=== PATIENT | male | born 1945 | race Caucasian/White ===

== ENCOUNTER → 2022-07-05 10:18 | Outpatient (CLI) | payer MEDICARE, SELFPAY ==
--- NOTE | 2022-07-05 | DI.MRI.S_ITS ---
PROCEDURE: MR LUMBAR SPINE WO CON INDICATIONS: SCIATICA/LOW BACK PAIN TECHNIQUE: Noncontrast sagittal T1 spin echo and T2 fast echo, sagittal STIR, and T2 fast spin echo through the lumbar spine. In cases with scoliosis, additional coronal T2 fast spin echo may be performed. COMPARISON: None. FINDINGS: Image quality: Excellent. Alignment and Curvature: There is grade 1 L4 on L5 anterolisthesis. No other spondylolisthesis. Bone Marrow: There is multilevel reactive endplate changes. No compression deformities. Spinal Cord: Conus medullaris terminates at the L1 level. Visualized cord demonstrates normal signal and size. Paraspinous Soft Tissues: No paravertebral masses. T12-L1: Moderate disc desiccation and height loss. Broad-based disc bulge. No canal stenosis. Mild bilateral foraminal narrowing. L1-L2: Severe disc desiccation and height loss. Broad-based disc bulge. Mild facet ligamentum flavum hypertrophy. No canal stenosis. Mild left and moderate right foraminal narrowing. L2-L3: Severe disc desiccation and height loss. Broad-based disc bulge. Severe facet and ligamentum flavum hypertrophy. Mild canal stenosis. Moderate right and mild left foraminal stenosis. L3-L4: Severe disc desiccation and height loss. Vacuum disc phenomenon. Severe facet ligamentum flavum hypertrophy. Severe canal stenosis. Severe bilateral neural foraminal stenosis. L4-L5: Anterolisthesis. Severe disc desiccation and height loss. Severe facet ligamentum flavum hypertrophy. Severe canal stenosis. Severe bilateral neural foraminal stenosis. There is flattening of the exiting left nerve root. L5-S1: Severe disc desiccation and height loss. Mild facet sclerosis. No canal stenosis. Mild right foraminal narrowing. IMPRESSION: 1. Multilevel disc desiccation and height loss throughout the lumbar spine overall severe in degree. 2. Multilevel broad-based disc bulges and facet and ligamentum flavum hypertrophy with resultant mild canal stenosis at L2-3 and severe canal stenosis at L3-4 and L4-5. 3. Severe bilateral foraminal stenosis at L3-4 and L4-5. There is flattening of the exiting nerve root at L4-5. 4. Moderate right neural foraminal stenosis at L1-2 and L2-3. Dictated by: Myriam Yoon M.D. on 07/05/2022 at 15:45 Approved by: Myriam Yoon M.D. on 07/05/2022 at 16:06
== END ==
PROVIDERS: PCP Internal Medicine; Referring Provider Internal Medicine; Visit Provider Internal Medicine
DX: M48.061 Spinal stenosis, lumbar region without neurogenic claudication (principal); M51.16 Intervertebral disc disorders with radiculopathy, lumbar region; M54.50 Low back pain, unspecified
CPT/HCPCS: 72148

== ENCOUNTER → 2022-08-24 10:38 | Outpatient (CLI) | payer MEDICARE, SELFPAY ==
[2022-08-24 11:25] LABS: COVID19 -Nasal RAPID Negative (Negative)
== END ==
PROVIDERS: PCP Internal Medicine; Referring Provider Orthopaedic Surgery Orthopaedic Surgery of the Spine; Visit Provider Orthopaedic Surgery Orthopaedic Surgery of the Spine
DX: Z20.822 Contact with and (suspected) exposure to COVID-19 (principal)
CPT/HCPCS: 87635; C9803

== ENCOUNTER 2022-08-25 12:27 | Inpatient (IN) | payer MEDICARE, SELFPAY ==
[2022-08-23 12:49] VITALS: BMI 32.8
[2022-08-25] VITALS (10 sets, daily range): BP systolic 103–161; BP diastolic 55–90; PULSE 70–88; RESP 15–26; TEMP 36.3–36.8; O2SAT 87–98; BMI 32.8
--- NOTE | 2022-08-25 | DI.RAD.S_ITS ---
PROCEDURE: XR LUMBAR SPINE 2-3V INDICATIONS: L4-5 TLIF TECHNIQUE: Two views of the lumbar spine were acquired. COMPARISON: None. FINDINGS: Two intraoperative fluoroscopic spot images demonstrate posterior fusion hardware at L4-5 and intervertebral disc spacer. Alignment is grossly normal. IMPRESSION: Intraoperative fluoroscopy for L4-5 TLIF. Dictated by: Wendie Barone M.D. on 08/25/2022 at 20:37 Approved by: Wendie Barone M.D. on 08/25/2022 at 20:38
[2022-08-25] MEDS: LACTATED RINGERS 1,000 ML 42 ML IV ×3 (13:41→19:25)
--- NOTE | 2022-08-25 16:28 | PM.PREOP ---
Pre-operative Note COVID-19 COVID-19 status: Negative Result date/Date tested (Pos, Neg/Pending): 08/24/22 Criteria for continued procedure: Expected advancement of disease process, Possibility delay results in more complex future surgery or treatment, Increased loss of function, Continuing or worsening of significant or severe pain, Deterioration of the patient's condition or overall health and Delay expected to result in less-positive ultimate med/surg outcome Interval Note History & Physical reviewed/Exam performed by Physician: Yes Changes to H&P: No
[2022-08-25] MEDS: CEFAZOLIN 2 GM/100 ML PREMIX 100 ML IV (17:07)
--- NOTE | 2022-08-25 17:42 | SUR.OPER ---
Prone on spine table, head in foam head support, padded chest and pelvic supports, gel pad at knees, lower legs supported by pillows; nipples, genitalia and toes free of pressure, arms secured on foam padded arm boards at <90 degrees abduction. Tape over blanket at thigh secured to table. Gel pad placed between bilateral heels.
[2022-08-25] MEDS: BUPIVACAINE LIPOSOME 266 MG/20 ML VIAL INJ (17:48)
[2022-08-25] MEDS: BUPIVACAINE 0.25% (PF) 30 ML, EPINEPHrine 0.3 MG INJ (17:49)
--- NOTE | 2022-08-25 19:32 | P.OP_ITS ---
Operative Date/Time/Diagnoses Date of procedure: 08/25/22 Time of procedure: 17:00 Pre-op diagnosis: 1. L4-5 spinal stenosis with neurogenic claudication 2. L4-5 spondylosis with radiculopathy Post-op diagnosis: same Procedure & Clinicians Procedure: 1. L4-5 Postero-lateral and posterior interbody fusion 2. L4-5 interbody cage placement. 3. L4-5 decompressive laminectomy with bilateral facetecomies 4. L4-5 Posterior non-segmental instrumentation 5. [place] of bone marrow from iliac crest 6. Utilization of microsurgical technique and operating microscope Same procedure as scheduled: Yes Indications: Patient has been having chronic back pain and worsening lumbar radiculopathy. Patient failed multiple conservative management with worsening pain weakness and numbness in her lower extremity. Patient has been having difficulty performing activity of daily living. After discussing risks benefits of treatment options, patient elected proceed with surgery. Surgeon: Sandra Douglas Audiology Technician: Isaias Quintanilla Click Yes if Unassisted: No Anesthesia Type: General Operative Notes Closure Type: primary Specimen(s): none sent Prosthetic devices, grafts, tissues, transplants, or devices: Globus revolve screws, Rise cage Estimated Blood Loss (mL): 50 Blood products transfused: none Procedure in detail: Patient was seen in the preoperative area. Risks and benefits of the surgery was discussed with the patient. Informed consent was obtained from the patient and placed in the chart. Surgical site was marked. Patient was taken to the operative room. General anesthesia was administered. Prophylactic antibiotic was given to the patient less than 30 min before the incision was made. Patient was placed into a prone position on the Fly table. Patient's back was then prepped and draped in the sterile fashion. Time-out was performed at this time. Using AP and lateral C-arm imaging the interval between L4-5 was identified and marked on patient's back. A 2 inch incision 2 in from midline was made on the left side first. The fascia was incised in line with skin incision. Globus MARS retractors was placed inside the incision and docked onto the L4 lamina. Using microsurgical technique and operating microscope, a L4 laminectomy and L4-5 facetectomy was performed using a Kerrison rongeur. The disc space at L4-5 was identified. And a total diskectomy was performed at L4-5 level. The endplates were decorticated using a rasp and shaver. The total diskectomy and decortication was performed at L4-5 level in order to to accomplish a L4-5 fusion. The local bone from the laminectomy and facetectomy was saved for local bone grafting. After the total diskectomy and decortication was completed, Trifecta bone graft material was combined with local bone that was harvested earlier. At this time, a separate skin is incision was made over the iliac crest. A Jamshidi needle was inserted into the iliac crest through a separate skin incision. 5 cc of bone marrow aspiration was obtained through the separate skin incision using a Jamshidi needle from the iliac crest. The bone marrow aspiration was combined with local bone and the Trifecta bone grafting material. The bone grafting material was placed into the L4-5 interbody space along with a expandable cage. The cage was expanded to its maximum height using the torque limiting screwdriver. At this time a mirror image incision was made on the right side. The fascia was incised in line with the skin incision. Globus MARS retractor was inserted and docked onto the L4-5 posterolateral gutter. Using the power drill, posterior- lateral decortication was performed at L4-5 level until bleeding cortical bone was identified. The remaining bone grafting material was placed into the L4-5 posterior lateral gutter he order to accomplish posterolateral fusion at the L4- 5 level. Using the double C-arm technique, pedicle screws were placed into the L4-5 pedicles bilaterally. This was done by placing the Jamshidi needle into the pedicles, then placing the guidewires over the Jamshidi needle, and finally placing the cannulated screws over the guidewires bilaterally. After the pedicle screws were placed, 2 titanium rods was locked into the heads of the pedicle sc rews using locking caps and torque limiting screwdriver. After all the hardware was placed, and confirmed with AP and lateral C-arm imaging, the wound was then irrigated with sterile normal saline and packed with Ray-Mariano gauze for 3 min to accomplish hemostasis. After the gauze was removed the deep fascia was closed with #1 Vicryl suture. The subcutaneous layer was closed with 2-0 Vicryl. The skin was closed with skin malika. Patient tolerated the procedure well. There were no complications. Complications: none Post-operative Condition: stable Disposition: PACU Plan for aftercare: Admit to inpatient hospital
[2022-08-25] MEDS: ONDANSETRON 4 MG/2 ML INJ IV (20:00)
[2022-08-25] MEDS: HYDROMORPHONE 2 MG INJ IV ×2 (20:00→20:08)
[2022-08-25] MEDS: fentaNYL 100 MCG/2 ML INJ IV (20:01)
[2022-08-25] MEDS: hydrOXYzine 50 MG/ML INJ 25 MG IM (20:20)
[2022-08-25] MEDS: SENNOSIDES 8.6 MG TABLET 17.2 MG PO (21:39)
[2022-08-25] MEDS: hydrOXYzine pamoate 25 MG CAPSULE PO (21:39)
[2022-08-25] MEDS: HYDROMORPHONE 0.5 MG INJ 0.2 MG IV (21:39)
[2022-08-25] MEDS: TAMSULOSIN 0.4 MG CAPSULE PO (21:39)
[2022-08-25] MEDS: DOCUSATE 100 MG CAPSULE PO (21:40)
[2022-08-25] MEDS: SODIUM CHLORIDE 0.9% 1,000 ML 100 ML IV (21:40)
[2022-08-26] MEDS: CEFAZOLIN 2 GM/100 ML PREMIX 100 ML IV ×2 (00:04→09:17)
[2022-08-26] MEDS: OXYCODONE/ACETAMINOPHEN 5/325 TABLET 1 TAB PO ×2 (00:13→06:57)
[2022-08-26 03:36] VITALS: BP 129/67; PULSE 77; RESP 18; TEMP 36.9; O2SAT 91
[2022-08-26 08:00] VITALS: BP 147/72; PULSE 69; RESP 18; TEMP 36.7; O2SAT 95
--- NOTE | 2022-08-26 08:13 | PM.DS.1 ---
History of Present Illness History of Present Illness Date Patient Seen: 08/26/22 Time Patient Seen: 08:13 Chief complaint: Translaminar Interbody Fusion/Laminotomy Narrative: Patient is complaining of moderate low back pain this morning. He denies any new numbness or tingling, no nausea or vomiting. He has not worked with physical therapy or occupational therapy yet. Overall he is feeling well and would like to be discharged home today. He is currently on 2 L of oxygen, notes he does not use home oxygen. Does use a CPAP. Discharge Providers Provider Date of admission: 08/25/22 12:27 Discharge Date: 08/26/22 Primary care physician: Lidia Koch MD Consults: 08/25/22 20:53 Consult to Occupational Therapy Evaluate & Treat Comment: Physician Instructions: Evaluate and treat Consult to Physical Therapy Evaluate & Treat Comment: Physician Instructions: Evaluate and Treat Discharge provider: Mary Quiroz PA-C Summary Hospital Course Discharge Diagnosis: 1. L4-5 spinal stenosis with neurogenic claudication 2. L4-5 spondylosis with radiculopathy Hospital Course: Operative Date/Time/Diagnoses Date of procedure: 08/25/22 Time of procedure: 17:00 Procedure & Clinicians Procedure: 1. L4-5 Postero-lateral and posterior interbody fusion 2. L4-5 interbody cage placement. 3. L4-5 decompressive laminectomy with bilateral facetecomies 4. L4-5 Posterior non-segmental instrumentation 5. [place] of bone marrow from iliac crest 6. Utilization of microsurgical technique and operating microscope Same procedure as scheduled: Yes Indications: Patient has been having chronic back pain and worsening lumbar radiculopathy. Patient failed multiple conservative management with worsening pain weakness and numbness in her lower extremity.? Patient has been having difficulty performing activity of daily living.? After discussing risks benefits of treatment options, patient elected proceed with surgery. Surgeon: Sandra Douglas Director Patient: Isaias Quintanilla Click Yes if Unassisted: No Anesthesia Type: General Operative Notes Closure Type: primary Specimen(s): none sent Prosthetic devices, grafts, tissues, transplants, or devices: Globus revolve screws, Rise cage Estimated Blood Loss (mL): 50 Blood products transfused: none Status at Discharge Cognitive/behavioral status at discharge: at baseline, oriented Functional status at discharge: uses cane/walker Overall status at discharge: patient is progressing back to baseline Exam Vital Signs (past 8 hours): - 08/26/22 03:36 Temperature 98.5 F Pulse Rate 77 Respiratory Rate 18 Blood Pressure 129/67 Pulse Oximetry 91 Oxygen Flow Rate 0 Oxygen Delivery Method Nasal Cannula Oxygen Flow Rate 0 Narrative Exam Narrative: Pleasant 76-year-old male, resting comfortably in bed, no acute distress. Lumbar dressing is clean, dry, intact. There is no surrounding erythema, induration aurora pus. Bilateral lower extremity: Motor functions are grossly intact, sensation is grossly intact to light touch, calves are soft and nontender to palpation. FORMERLY [facility], 1928–[facility] Medical History COVID-19 virus infection (~11/2021) Neck abscess SUNNY on CPAP Pneumonia Prostate cancer (2006) Surgical History History of surgery Hx of LASIK Hx of repair of left rotator cuff Hx of repair of right rotator cuff Hx of tonsillectomy Social History household members: spouse Smoking Status: Never smoker alcohol intake: current Discharge Assessment & Plan Assessment and Plan Assessment: -stable status post L4-5 TLIF -SUNNY, currently on 2 L of oxygen and CPAP at night Plan of Treatment: -mobilize with PT/OT. Weightbearing as tolerated with front wheel walker or cane. No bending, lifting, twisting x6 weeks -continue multimodal pain management -continue to monitor oxygenation, possibly home with home O2 depending on how he does -DC home today once cleared by PT/OT Discharge Plan Discharge Plan Patient Disposition: Home Discharge orders & Medications Prescriptions: New acetaminophen 325 mg Tablet 650 mg PO Q6HR MDD Max 3000 mg per day PRN (Reason: Pain, Mild (1-3)) Qty: 90 0RF docusate sodium 100 mg Capsule 100 mg PO BID PRN (Reason: constipation) Qty: 20 0RF hydroxyzine pamoate 25 mg Capsule 25 mg PO Q4HR PRN (Reason: Muscle spasm/pain/nausea) Qty: 40 0RF oxycodone 5 mg Tablet See Rx Instructions .ROUTE .COMPLEX PRN (Reason: Pain, Severe (7-10)) Qty: 42 0RF Rx Instructions: Take 1-2 tablets every 4 hours as needed for moderate to severe postoperative pain Continued tamsulosin [Flomax] 0.4 MG capsule,extended release 24hr 0.4 mg PO BEDTIME Qty: 0 tolterodine 4 mg Capsule,Extended Release 24hr 4 mg PO BEDTIME Follow up/Referrals: Lidia Koch MD [Primary Care Provider] - Sandra Douglas MD [Physician] - As previously scheduled (10-14 days for postoperative visit) Diet/Activity/Treatments Diet: Diet as Tolerated Other treatments: Medications: -OTC Tylenol 500 mg 1 tablet every 4 hours as needed for pain/fever. Max 6 tablets per day. -Oxycodone 5 mg take 1-2 tablets every 4 hours as needed for moderate-severe pain (narcotic pain medication). -As needed medications: -Ducolax and /or MiraLax as needed for constipation from narcotic pain medications. -Pepcid AC as needed for stomach upset. -Vistaril (hydroxyine) 25mg 1 tab every 4 hours as needed for spasms/pain/nausea. Dressing/Wound care: -Keep dressing in place until postoperative follow-up office visit. -Okay to shower. Keep wound out of direct water stream. Can use PressNSeal plastic wrap to protect from shower stream. No soaking or submerging until all the scabs fall off (approximately 6 weeks). -Please call the office if dressing becomes wet, soiled, or saturated. Activities: -Limit bending, lifting, twisting x6 weeks. No deep bending (more than 90 degrees) or twisting at the waist. No lifting > 20 pounds. -Walk frequently. -Weight-bearing as tolerated. Use front wheeled walker, and progress to cane when safe. -Continue with home exercises as directed by your physical therapist. -Ice your incision as needed for pain/inflammation/swelling. Protect your skin with a folded pillowcase. -Incentive Spirometer (breathing device from hospital): 5-10xs every hour while awake for the first 1-2 weeks. Follow-up: -Follow-up with your surgeon or PA in the office in 10-14 days after surgery. -Follow-up with your surgeon 6 weeks postoperatively. Call the office if you have chest pain, shortness of breath, significant swelling that will not resolve with elevating, fever over 101?, significantly worsening pain, or are concerned you might need to go to the Emergency Room. [facility]: [phone] Skin/Wound/Dressing Care Report to your healthcare provider any signs of infection, such as:: chills, fever, night sweats, unusual drainage and unusual redness Visit Report/Discharge Packet Instructions: DI for Prescription Opioid Use, DI for Transforaminal Lumbar Interbody Fusion Stand Alone Forms: Surgery Discharge Discharge Data Primary Care Provider: Lidia Koch
--- NOTE | 2022-08-26 09:00 | OT.IP.EVAL ---
Current Diagnoses Spondylolisthesis, lumbar region (08/25/22) Spinal stenosis, lumbar region with neurogenic claudication (08/25/22) Surgery Performed Operation Date: 08/25/22 14:15 Actual Procedures p L4-5 TLIF, L3-4 left hemilaminectomy - Sandra Douglas MD Past Medical History (Last Reviewed 08/26/22 @ 08:15 by Mary Quiroz PA-C) COVID-19 virus infection (~11/2021) Neck abscess SUN[place] on CPAP Pneumonia Prostate cancer (2006) Surgical History (Last Reviewed 08/26/22 @ 08:15 by Mary Quiroz PA-C) History of surgery Hx of LASIK Hx of repair of left rotator cuff Hx of repair of right rotator cuff Hx of tonsillectomy Occupational Therapy Inpatient Evaluation/Re-Eval M1 PT/OT-IP Prior Functional Status Start: 08/26/22 12:01 Freq: NEEDED Status: Active Protocol: Document 08/26/22 09:00 [facility] (Rec: 08/26/22 12:23 [facility] [id number]) Medical Review Prior Functional Status Communication Independent Mobility and Gait Pt states did not use a device and was able to walk his dog 1 mile recently. Activities of Daily Living and IADL's Increased time for ADL needs due to his back pain. Social History Household Members spouse Living Arrangements House Number of Floors (Floors) One Floor Number of Stairs To Enter/Railing? 4 steps with right rail. Home Environment High Toilet,Walk in Shower, Built-In Shower Seat,Bidet Home Equipment Front Wheel Walker,Four Wheel Walker,Hand Held Shower, Angle Shearer,Sock Aid Additional Social History Comment Pt's to be home to be able to assist pt as needed. M2 OT-IP Current Condition Start: 08/26/22 12:01 Freq: Status: Active Protocol: Document 08/26/22 09:00 [facility] (Rec: 08/26/22 12:23 [facility] [id number]) Occupational Therapy Current Condition Current Condition Evaluation Date 08/26/22 Treatment Diagnosis S/p L4-5 TLIF Diagnosis Onset Date 08/25/22 Post Operative Precautions Lumbar Precautions Log Roll,No Twisting,Limit Bending,Lifting Restriction of 10 lbs,Gait Belt above Incisional Area M3 OT- IP Subjective and Pain Start: 08/26/22 12:01 Freq: Status: Active Protocol: Document 08/26/22 09:00 [facility] (Rec: 08/26/22 12:23 [facility] [id number]) OT- Subjective Occupational Therapy Visit Type Type Initial Evaluation Visit Start Time 09:00 Visit Stop Time 09:39 Total Visit Minutes 39 Occupational Therapy Visit Comments Patient Comments Pt agreed to get up and work with OT. Patient/Caregiver Goals TO go home. OT Pain Assessment Pain When Pain Assessed At Rest Pain Present Pain Present Pain Reported Location back Intensity 4 Scale Used Numeric (0 - 10) M4 OT- IP ADL's Start: 08/26/22 12: Freq: Status: Active Protocol: Document 08/26/22 09:00 [facility] (Rec: 08/26/22 12:23 [facility] [id number]) OT [id number] Comments OT Self-Feeding Comments Not at meal time. OT ADL-Grooming Comments OT Grooming Comments Not performed. OT ADL-Oral Care Comments Oral Care Comments VC to spit into a cup to best follow his back precautions. OT ADL-Dressing General Eval Lower Body Dressing Ability Minimal Assistance Areas Needing Assistance Underpants/Brief,Pants/Shorts, Socks,Shoes Comments OT Dressing Comments Assist to tamiko his velcro slippers over his feet. OT ADL-Toileting General Evaluation Toileting Ability Standby Assistance Comments OT Toileting Comments Pt able to use the toilet while standing with the FWW over the toilet. Pt has a bidet at home. OT ADL-Bathing Comments OT Bathing Comments Pt states has a built in seat and that his is able to assist him at home. M5 OT- IP IADL's Start: 08/26/22 12:01 Freq: Status: Active Protocol: Document 08/26/22 09:00 [facility] (Rec: 08/26/22 12:23 [facility] [id number]) OT-Instrumental Activities of Daily Living Deficits IADL Deficits Identified Deficits Home Safety Awareness Awareness of Need for Assistance at Home Good Awareness Ability to Problem Solve Emergency Able to Problem Solve Situations Medication Management Medication Management Comments Pt's to provide supervision as needed. Money Management Money Management Comments Pt's to provide supervision as needed Meal Preparation Meal Preparation No Deficits Identified Hydraulic Punch Press Operator Hydraulic Punch Press Operator No Deficits Identified M6 OT- IP Functional Cognition Start: 08/26/22 12:01 Freq: Status: Active Protocol: Document 08/26/22 09:00 [facility] (Rec: 08/26/22 12:23 [facility] [id number]) Cognitive Factors Limiting Selfcare Function Cognitive Ability Level of Alertness Alert Patient Orientation Name,Age,Birthday,Month,Date, Year,Day of Week,Place, Situation Attention Span Ability Capable of Focused Attention, Capable of Sustained Attention Ability to Follow Commands Able to Follow Multi-Step Commands Cognitive Comments Cognitive Assessment Comments Pt intact and able to follow his back precautions well for ADl and mobility needs. Pt just needing initial education to push up from the surfaces sitting on when coming to stand to the FWW. OT- Vision and Hearing OT- Hearing Assessment OT- Hearing Assessment WFL OT- Vision Assessment Visual Acuity WFL Visual Attentiveness WFL Occular Pursuits WFL M7 OT- IP Mobility and Balance Start: 08/26/22 12:01 Freq: Status: Active Protocol: Document 08/26/22 09:00 [facility] (Rec: 08/26/22 12:23 [facility] [id number]) OT- Bed Mobility Assessment Rolling Type of Rolling Roll to Right Supine to Sit Supine to Sit Assist Standby Assistance Scooting Scooting to Edge of Bed Standby Assistance OT-Transfer Assessment Sit to and From Stand Sit to and from Stand Standby Assistance Transfers Transfer Ability Standby Assistance Technique Transfer Destination Bed,Chair Transfer Technique Stand Step Pivot Devices Transfer Assistive Devices Gait Belt,Front Wheeled Walker Comments Mobility Comments SBA for bed mobility and transfers at this time. OT- Balance Assessment Sitting Balance and Reactions Static Sitting Balance Ability Normal Dynamic Sitting Balance Ability Good Standing Balance and Reactions Static Standing Balance Ability Fair Dynamic Standing Balance Ability Fair M8 OT- IP Objective Assessments Start: 08/26/22 12:01 Freq: Status: Active Protocol: Document 08/26/22 09:00 [facility] (Rec: 08/26/22 12:23 [facility] [id number]) OT-Muscle Tone Assessment Muscle Tone WNL Yes M9 OT- IP Assessment and Plan Start: 08/26/22 12:01 Freq: Status: Active Protocol: Document 08/26/22 09:00 [facility] (Rec: 08/26/22 12:23 [facility] [id number]) OT Summary Assessment and Plan Potential Rehabilitation Potential Excellent Analytic Complexity at Evaluation Low Summary OT Impairments Pain,Balance,Functional Mobility,Grooming,Dressing, Toileting,Bathing,Toilet Transfers,Shower Transfers Progress Towards Goals Progressing Toward Goals Assessment Summary Pt low complexity and main barriers are steps, needing minimal assist for LB dressing needs, and will need assist for bathing needs. Pt has a supportive and able to educate her how to tamiko/doff the gait belt and how to assist pt for ADl and mobility needs. Pt looking to go home today and have assist form his . Goals Grooming Goal Independent Dressing Goal Independent Toileting Goal Independent Bathing Goal Minimal Assistance Toilet Transfer Goal Independent Shower Transfer Goal Independent Days to Meet Goals 2 Frequency of Treatment Frequency Of Treatment Once a Day Treatment Plan OT Treatment Plan ADL Training,Functional Mobility,Patient/Family Education,Discharge Planning Discharge Recommendations OT Discharge Recommendations Home with Assistance Transportation Needs at Discharge Private Vehicle
[2022-08-26 09:07] LABS: Hematocrit 36.6 % (41-53); Hemoglobin 12.4 g/dL (13.5-17.5)
[2022-08-26] MEDS: MAGNESIUM HYDROXIDE 30 ML UDC PO (09:17)
[2022-08-26] MEDS: DOCUSATE 100 MG CAPSULE PO (09:17)
--- NOTE | 2022-08-26 09:21 | CM.IDA ---
Initial DCP Assessment Patient is 76 y/o male who presents to for spinal stenosis surgery performed by Dr. Douglas. Patient has d/c orders for today pending OT/PT evaluation. Patient's PCP is Dr. Koch, patient has Medicare and [employer] insurance. Patient has hx of Hypertension, Arthritis, Cancer and Sleep Apnea with CPAP. METAL FENCE ERECTOR enters room to meet with patient, present in room is OT who is about to evaluate patient. Patient endorses independence with ADLs, states he typically drives but plans not to post surgery and states his can drive him. Patient endorses local supports from daughter, son, and neighbors. Patient denies DCP needs at this time, METAL FENCE ERECTOR to f/u with PT/OT after evaluation. Plan: Patient to d/c to home today via POV with . DCP to f/u with needs pending PT/OT eval. EVARISTO Yoder Discharge Planning/Care Management CM Discharge Assessment Start: 08/26/22 09:18 Freq: Status: Active Protocol: Document 08/26/22 09:19 LN (Rec: 08/26/22 09:21 LN [id number]) Discharge Planning Assessment Assigned Rat Culturist EVARISTO Armstrong Advance Directives? Yes Advance Directives on File No History Provided By Patient,Medical Record Has Patient been admitted in last 30 No days? Prior Living Arrangements House Household Members spouse Type of transporation used prior to Drives own vehicle admit Comment Drives at baseline, will drive patient post surgery. Independent with ADL's Yes Is patient alert and oriented? Yes Discharge Plan Home Referrals Initiated None needed Whiteboard Updated in Patient Room with Yes name and ext. # of Rat Culturist Please Provide Date Initial DC 08/26/22
--- NOTE | 2022-08-26 09:40 | PT.IIE ---
Current Diagnoses Spondylolisthesis, lumbar region (08/25/22) Spinal stenosis, lumbar region with neurogenic claudication (08/25/22) Surgery Performed Operation Date: 08/25/22 14:15 Actual Procedures p L4-5 TLIF, L3-4 left hemilaminectomy - Sandra Douglas MD Surgical History (Last Reviewed 08/26/22 @ 08:15 by Mary Quiroz PA-C) History of surgery Hx of LASIK Hx of repair of left rotator cuff Hx of repair of right rotator cuff Hx of tonsillectomy Medical History (Last Reviewed 08/26/22 @ 08:15 by Mary Quiroz PA-C) COVID-19 virus infection (~11/2021) Neck abscess SUNNY on CPAP Pneumonia Prostate cancer (2006) Physical Therapy Inpatient Evaluation/Re-Eval M1 PT/OT-IP Prior Functional Status Start: 08/26/22 13:25 Freq: NEEDED Status: Active Protocol: Document 08/26/22 09:40 AB (Rec: 08/26/22 13:[email or web address] Medical Review Prior Functional Status Medical History Reviewed Yes Communication able to make needs known Mobility and Gait pt stated that he is independent with all mobilities and ambulation without AD Social History Household Members spouse Living Arrangements House Number of Floors (Floors) One Floor Number of Stairs To Enter/Railing? 4 steps R rail ascending to enter the house Home Environment High Toilet,Walk in Shower, Built-In Shower Seat Home Equipment Front Wheel Walker,Four Wheel Walker,Straight Cane,Hand Held Shower M2 PT-IP Current Condition Start: 08/26/22 13:25 Freq: NEEDED Status: Active Protocol: Document 08/26/22 09:40 AB (Rec: 08/26/22 13:36 AB [email or web address]) Physical Therapy Current Condition Current Condition Evaluation Date 08/26/22 Treatment Diagnosis s/p L4-5 fusion; difficulty in walking Onset Date 08/25/22 M3 PT-IP Subjective Start: 08/26/22 13:25 Freq: NEEDED Status: Active Protocol: Document 08/26/22 09:40 AB (Rec: 08/26/22 13:36 AB [email or web address]) Subjective Physical Therapy Visit Type Type Initial Evaluation Visit Start Time 09:40 Visit Stop Time 10:10 Total Visit Minutes 30 Number of INFORMATION SYSTEMS SPECIALIST Visits 0 Physical Therapy Visit Comments Patient Comments agreeable to do PT; wants to go home Therapy Pain Assessment Pain When Pain Assessed At Rest Pain Present Pain Present Pain Reported Location back Intensity 4 Scale Used Numeric (0 - 10) Pain Management Techniques Apply Cold,Modification of Treatment,Re-positioning, Timing of Activity with Medications M4 PT-IP Mobility and Gait Start: 08/26/22 13:25 Freq: NEEDED Status: Active Protocol: Document 08/26/22 09:40 AB (Rec: 08/26/22 13:36 AB [id number]) PT-Bed Mobility Assessment Rolling Type of Rolling Log Rolling Level of Assist Standby Assistance Supine to Sit Supine to Sit Standby Assistance Sit to Supine Sit to Supine Standby Assistance PT-Transfer Assessment Sit to and From Stand Sit to and from Stand Standby Assistance,Contact Guard Assistance,1 Person Assistance,Use of Upper Extremities Equipment Transfer Assistive Device Gait Belt,Front Wheeled Walker Orthotic/Prosthetic Devices or Brace: No Transfers Transfer Destination Bed,Chair Transfer Technique Stand Step Pivot Transfer Ability Level of Assist Standby Assistance,Contact Guard Assistance,1 Person Assistance,Use of Upper Extremities Comments Mobility Comments pt sitting on chair. able to recall back precautions. completed sit to stand SBA but with heavy UE use. pt step transfer to EOB using fWW SBA to CGA. educated pt on sit<> stand technique. completed sit<>stand x 3 reps SBA with improved transition and steadiness. completed log roll sit<>supine SBA and cues for techniques. spouse in room. caregiver training conducted. educated spouse on how to use safety belt and how to assist pt. spouse was able to put safety belt on pt. assisted pt with sit to stand and with ambulation ~ 150 ft using fWW towards the stairs SBA to CGA. pt completed up/down stairs using R rail ascending CGA. repeated x 2 sets. pt ambulated back to his room using FWW with spouse assisting. pt sat back on chair. call light and table placed within reach. educated on car transfer techniques. pt and spouse without further concerns. Gait Assessment Gait Gait Assistance Required: Standby Assistance,Contact Guard Assist Distance (Feet) 150 Able to Maintain Weight Bearing Status Yes During Gait Assistive Devices Assistive Device Gait Belt,Front Wheeled Walker Orthotic/Prosthetic Devices or Brace: No Gait Deviations General Gait Pattern Decreased Stride Length, Decreased Feet Clearance Factors Limiting Gait Function Factors Limiting Gait Function Decreased Activity Tolerance, Limited Range of Motion,Pain, Poor Balance,Poor Safety Awareness Stair Climbing Assessment Evaluation Level of Assist On Stairs Contact Guard Assistance Devices Stair Climbing Assistive Devices Right Railing Technique/Endurance Stair Climbing Direction Ascend and Descend Stair Climbing Technique Step to Step Number of Steps Climbed 3 Query Text: Stair Climbing Set # Repetitions (reps) 2 PT-Balance Assessment Sitting Balance and Reactions Static Sitting Balance Ability Good Dynamic Sitting Balance Ability Good Standing Balance and Reactions Static Standing Balance Ability Fair Dynamic Standing Balance Ability Fair Device Used FWW M5 PT-IP Objective Assessments Start: 08/26/22 13:25 Freq: NEEDED Status: Active Protocol: Document 08/26/22 09:40 AB (Rec: 08/26/22 13:36 AB [email or web address]) Orientation Orientation/Cognition Level of Alertness Alert Orientation Name,Situation Language Function Ability No Deficits Noted Safety Awareness Decreased Safety Awareness Memory Description No Deficits Noted Gross Range of Motion Lower Extremity ROM Assessment Within Functional Limits Strength Lower Extremity Strength Assessment Within Functional Limits Coordination Assessment Gross Coordination Gross Coordination WNL Sensation Assessment Sensation Gross Sensation WNL M6 PT-IP Treatment Start: 08/26/22 13:25 Freq: NEEDED Status: Active Protocol: Document 08/26/22 09:40 AB (Rec: 08/26/22 13:36 AB [email or web address]) Physical Therapy Treatment Education Education Provided Precautions,Weight Bearing Status,Safety M7 PT-IP Assessment and Plan Start: 08/26/22 13:25 Freq: NEEDED Status: Active Protocol: Document 08/26/22 09:40 AB (Rec: 08/26/22 13:36 AB [id number]) PT Summary Assessment and Plan Potential Rehabilitation Potential Good Status of Condition at Evaluation Stable Summary Impairments Pain,ROM,Strength,Balance, Coordination,Sensation,Tone, Cognition,Bed Mobility, Transfers,Gait,Activity Tolerance Assessment Summary pt requiring SBA to CGA with mobility using FWW. caregiver training conducted and spouse was able to assist pt. pt may go home when medically stable . Goals Bed Mobility Goal Independent Transfer Goal Independent,Front Wheeled Walker Gait Goal Independent,Front Wheel Walker Gait Distance 200 Other Goals up/down 4 steps R rail SBA Days to Meet Goals 5 Frequency of Treatment Frequency Of Treatment Twice a Day Treatment Plan Physical Therapy Treatment Plan Bed Mobility Training,Transfer Training,Gait Training, Therapeutic Exercise,Balance Retraining,Post Op Education, Discharge Planning,Hot or Cold Pack,Neuromuscular Re-ed, Coordination Retraining,Manual Therapy Precautions Lumbar Precautions Log Roll,No Twisting,Limit Bending,Lifting Restriction of 10 lbs,Gait Belt above Incisional Area Recommendations To Nursing Amount of Assist Needed 1 Person Assist Discharge Recommendations PT Discharge Recommendations Home with Assistance Transportation Needs at Discharge Private Vehicle
--- NOTE | 2022-08-26 11:03 | PC.NURSE ---
Day shift: Pt left unit at approx 1055 via WC. Pt's Spouse is driving them home. Paperwork signed and all questions answered. Dressing changed prior to d/c. Op-sites with no s/s of infection. CMS intact. scripts sent electronic to Pt's pharmacy. Pain well controlled per NOV.
== END 2022-08-26 11:09 | disposition home or self-care (01) | DRG 455 ==
PROVIDERS: Physician Assistant; Admitting Provider Orthopaedic Surgery Orthopaedic Surgery of the Spine; PCP Internal Medicine; Referring Provider Orthopaedic Surgery Orthopaedic Surgery of the Spine; Visit Provider Orthopaedic Surgery Orthopaedic Surgery of the Spine
PROC: 0SG00AJ Fusion of Lumbar Vertebral Joint with Interbody Fusion Device, Posterior Approach, Anterior Column, Open Approach (ICD-10-PCS; principal; 2022-08-25 14:15)
DX: M47.26 Other spondylosis with radiculopathy, lumbar region (principal); M48.062 Spinal stenosis, lumbar region with neurogenic claudication; G47.33 Obstructive sleep apnea (adult) (pediatric); Z85.46 Personal history of malignant neoplasm of prostate; Z20.822 Contact with and (suspected) exposure to COVID-19
CPT/HCPCS: 36415; 72100; 76000; 82962; 85014; 85018; 87635; 97161; 97165; 97535; C9803; C1713; C1831; C9290; J0171; J0330; J0690; J1170; J2250; J2405; J2704; J3010; J3410

== ENCOUNTER → 2022-12-23 12:18 | Outpatient (CLI) | payer MEDICARE, SELFPAY ==
[2022-08-25 12:54] VITALS: BMI 32.8
--- NOTE | 2022-12-23 | DI.MRI.S_ITS ---
PROCEDURE: MR SHOULDER LT WO CON INDICATIONS: Pain in left shoulder TECHNIQUE: Noncontrast oblique coronal T2 fast spin echo with fat saturation, oblique sagittal T1 spin echo and T2 fast spin echo with fat saturation, axial T1 spin echo and T2 fast spin echo with fat saturation through the shoulder. COMPARISON: None. FINDINGS: Image quality: Excellent. MRI of the left shoulder shows a full-thickness tear of the supraspinatus tendon with approximately 2.5 centimeters of tendon retraction. There is fatty infiltration of the muscle belly of the supraspinatus suggesting longstanding tear. There is a chronically torn glenoid labrum. There is moderate to severe AC joint degenerative change present and moderate glenohumeral joint degenerative change. The long head of the biceps tendon appears chronically torn. There is a small to moderate size shoulder joint effusion extending into the subacromial subdeltoid bursa. There appears to be some debris present in the axillary pouch region. These likely represent small loose bodies. IMPRESSION: 1. Full-thickness tear of the supraspinatus tendon at its attachment on the greater tuberosity with approximately 2.5 centimeters of tendon retraction. 2. Chronically torn long head of the biceps tendon. 3. Chronically torn glenoid labrum. 4. Moderate to severe AC joint degenerative change. 5. Moderate glenohumeral joint degenerative change. 6. Small to moderate size shoulder joint effusion extending into the subacromial subdeltoid bursa. 7. Fatty infiltration of the muscle belly of the supraspinatus suggesting longstanding tear. 8. Debris present in the axillary pouch region suggesting small loose bodies. Dictated by: Roney Velásquez M.D. on 12/23/2022 at 17:04 Approved by: Roney Velásquez M.D. on 12/23/2022 at 17:09
== END ==
PROVIDERS: PCP Internal Medicine; Referring Provider Orthopaedic Surgery; Visit Provider Orthopaedic Surgery
DX: M75.122 Complete rotator cuff tear or rupture of left shoulder, not specified as traumatic (principal); S46.112A Strain of muscle, fascia and tendon of long head of biceps, left arm, initial encounter; S43.492A Other sprain of left shoulder joint, initial encounter; M25.412 Effusion, left shoulder; M25.512 Pain in left shoulder
CPT/HCPCS: 73221

== ENCOUNTER → 2023-01-07 08:50 | Outpatient (CLI) | payer MEDICARE, SELFPAY ==
[2022-08-25 12:54] VITALS: BMI 32.8
--- NOTE | 2023-01-07 | DI.MRI.S_ITS ---
PROCEDURE: MR HEAD/BRAIN WO CON INDICATIONS: Paresthesia of skin TECHNIQUE: Non-contrast axial T1 spin echo, axial T2 fast spin echo, sagittal and axial FLAIR, coronal T2 fast spin echo, axial gradient echo, axial diffusion and ADC through the brain. COMPARISON: None. FINDINGS: Image quality: Excellent. CSF spaces: Ventricles appear symmetric in size and shape. Basal cisterns are patent. No extra-axial fluid collections. Brain: No intracranial bleeds or mass effects. There is cerebral volume loss for age. There are age-appropriate [id number] periventricular and deep white matter chronic small vessel ischemic changes. Brainstem appears normal. Diffusion-weighted images show no acute ischemic insults. No chronic ischemic insults. Normal intravascular flow voids are present. Skull and face: Calvarial bone marrow is normal in signal. Orbits are normal. Sinuses: Sinuses and mastoids are clear. IMPRESSION: Age-appropriate [id number] small vessel ischemic change. No evidence acute intracranial process. Dictated by: Ramírez Fuchs M.D. on 01/07/2023 at 10:23 Approved by: Ramírez Fuchs M.D. on 01/07/2023 at 10:24
== END ==
PROVIDERS: PCP Internal Medicine; Referring Provider Internal Medicine; Visit Provider Internal Medicine
DX: R20.2 Paresthesia of skin (principal)
CPT/HCPCS: 70551

== ENCOUNTER 2023-02-02 10:24 | Day surgery (SDC) | payer MEDICARE, SELFPAY ==
[2022-08-25 12:54] VITALS: BMI 32.8
[2023-01-31 08:38] VITALS: BMI 32.8
[2023-02-02] VITALS (8 sets, daily range): BP systolic 117–146; BP diastolic 51–80; PULSE 60–64; RESP 12–19; TEMP 36.4–36.8; O2SAT 93–98; BMI 32.8
[2023-02-02] MEDS: LACTATED RINGERS 1,000 ML 42 ML IV (11:15)
--- NOTE | 2023-02-02 12:27 | PM.PREOP ---
Pre-operative Note Interval Note History & Physical reviewed/Exam performed by Physician: Yes Changes to H&P: No
--- NOTE | 2023-02-02 13:05 | SUR.PREOP ---
Block start time [1245] . Monitoring initiated and maintained throughout procedure. Oxygen and medications given per anesthesiologist instructions. Patient remained stable throughout procedure, no adverse reactions noted. Block end time [1305].
--- NOTE | 2023-02-02 13:06 | SUR.PREOP ---
RN came to assist with shoulder block and noted pt was in what looked like Afib. Looked up pt's hx and medication list and pt had no history noted of atrial fibrilltaion. Talked to pt about any type of irregular heartbeat and he states he has not. MD ordered an EKG and we will see what it shows. Pt denies chest pain and SOB.
[2023-02-02] MEDS: CEFAZOLIN 2 GM/100 ML PREMIX 100 ML IV (13:30)
--- NOTE | 2023-02-02 14:10 | SUR.OPER ---
Lateral on padded OR bed with mejia bag positioner, head on pillow, gel axillary roll in place, bottom leg bent with gel pad under knee to foot, upper leg straight and supported with pillows. Operative arm secured in shoulder positioning suspension device with weighted traction per physician. non-operative arm secured on padded arm board. Safety belt at hip, tape over blanket securing lower legs. CONFIRMED BY DR. LYLES.
[2023-02-02] MEDS: SODIUM CHLORIDE IRRIG SOLUTION 3,000 ML, EPINEPHrine 1 MG IRR (14:32)
--- NOTE | 2023-02-02 14:49 | SUR.PREOP ---
Pt had an EKG completed prior to surgery the EKG showed Atrial Fibrillation. I informed Dr. Nichole , Dr. Walters, and Ronna Monzon RN, the counseling director. I also printed out the pt's prior EKG from 08/18/22 and that showed Normal Sinus Rhythm and the new EKG and gave them to Dr. Nichole and Dr. Walters.
--- NOTE | 2023-02-02 15:12 | P.OP_ITS ---
Operative Date/Time/Diagnoses Date of procedure: 02/02/23 Time of procedure: 15:12 Pre-op diagnosis: Left shoulder rotator cuff tear, acromioclavicular osteoarthritis and bicipital tendinitis Post-op diagnosis: same (Except for biceps was ruptured and there was moderate glenohumeral osteoarthritis.) Procedure & Clinicians Procedure: 1. Left shoulder arthroscopic rotator cuff repair 2. Arthroscopic distal clavicle excision 3. Arthroscopic subacromial decompression Same procedure as scheduled: Yes Indications: The patient is a 77-year-old gentleman who has had left shoulder pain that has not responded to non operative measures. His MRI has shown a rotator cuff tear and significant acromioclavicular osteoarthritis. He is agreed to surgery after discussion the risks benefits and alternatives. Risks discussed included but were not limited to: Failure to improve, stiffness, infection, nerve damage, deep venous thrombosis, pulmonary embolism, stroke, myocardial infarction, permanent paralysis and . Surgeon: Rajesh Walters Manager Business Information: Isaias Quintanilla Click Yes if Unassisted: No Anesthesia Type: General and Peripheral nerve block Operative Notes Findings: 1. Glenohumeral joint notable for widespread fraying of the glenoid and humeral cartilage 2. Widespread fraying of the glenoid labrum 3. Rupture of the biceps 4. Attenuated but intact subscapularis 5. Full-thickness tear of the entirety of the supraspinatus with minimal retraction. Quality of the cuff tendon was poor 6. Intact infraspinatus 7. No loose bodies in axillary pouch 8. Intact glenohumeral ligaments with synovial inflammation 9. Rotator cuff tear of the supraspinatus evident from the bursa. 10. Extensive bursal scar tissue, type 2 acromion with impingement lesion 11. Severe osteoarthritis of the acromioclavicular joint with large under hanging osteophytes 12. No evidence of significant stiffness or pathologic laxity on exam under anesthesia. Closure Type: primary Specimen(s): none sent Prosthetic devices, grafts, tissues, transplants, or devices: Two Mitek Healix Advance BR 5.5 mm triple threaded suture anchors Applied: implant(s) Estimated Blood Loss (mL): 15 Blood products transfused: none Procedure in detail: The patient was seen in the preoperative area where he identified the left shoulder as the operative site and this was marked with my initials. He underwent an interscalene block in the preoperative area. During block placement it was noted on ultrasound that he appeared to be in new onset atrial fibrillation. A 12 lead EKG was obtained which confirmed this. Immediately converted back to sinus rhythm on his monitors. He was hemodynamically stable throughout this time. And he had already been anesthetized so after careful consideration we elected to proceed with the arthroscopic surgery. Was taken back to the operating room placed on the operating room table in a supine position where he underwent induction of a light general anesthetic. His shoulder was examined under anesthesia and he was repositioned in the right lateral decubitus position with an axillary roll and padding for all pressure points. He was stabilized in this position using the mejia bag. A sales account manager-out was performed. He received preoperative antibiotics. His arm was prepared from the fingertips to the base of neck with ChloraPrep in the usual fashion draped through sterile drapes. Arm was placed in 10 lb of balanced skin suspension. The subcutaneous landmarks were outlined on the skin with a marking pen. Portal sites were selected. The posterior portal was created for the arthroscope and diagnostic arthroscopy ensued with result given above. During diagnostic arthroscopy a lateral portal was created to allow the shaver to be inserted through the rotator cuff tear to debride the biceps stump and synovial hypertrophy. The arthroscope was then withdrawn and placed in the subacromial space. The shaver remained in the lateral portal where it was used to excise the extensive scar tissue. The poor quality cuff was debrided to the best tissue for repair. The greater tuberosity was prepared to bleeding bone with a bur. The bur was also used to convert the type 2 acromion to a type 1 acromion. The distal 8-10 mm of the clavicle were removed to address the arthritis in that joint and the under hanging osteophytes. To superolateral portals were created to place anchors in the greater tuberosity. Two of the sutures from these anchors were used for the repair. The 3rd suture on each anchor was eventually removed as they were not necessary. One suture from each anchor was placed across the closest leaflet of the v-shaped tear. The 2nd suture was placed across both leaflets from each anchor. This provided 2 mattress sutures 1 from each anchor and 2 simple sutures 1 from each anchor closing down the and bringing the entire thing down into the greater tuberosity. After the sutures were tied the integrity of the repair was verified by viewing from the posterior and lateral portals. At this point all arthroscopic equipment was removed. The wounds were closed with 4-0 Monocryl and Steri-Strips. The wounds were dressed with sterile 4x4s, an ABD and adhesive dressing. The patient's arm was placed in a sling and he was transported to the recovery room in good condition having tolerated the procedure well. The services of a skilled career services assistant were necessary during this procedure to provide positioning, camera work and assistance with tying sutures arthroscopically. Without the as assistance of Leland Quintanilla the procedure could not have proceeded as expediently. Complications: none Post-operative Condition: stable Disposition: PACU Plan for aftercare: The patient will be maintained on a standard arthroscopic small size rotator cuff tear protocol with 6 weeks in a sling. He will be discharged today with follow-up in the office in 10-14 days. Prescription for Percocet was called to his pharmacy in [place] for pain control. Has been instructed to seek follow-up as soon as possible with his primary caregiver to discuss whether treatment is necessary for his intermittent atrial fibrillation. He has been instructed to remain on aspirin 81 mg b.i.d. for DVT prophylaxis.
--- NOTE | 2023-02-02 15:16 | SUR.OPER ---
DRESSING: MEDIPORE & SHOULDER SLING TO LEFT UPPER EXTREMITY.
== END 2023-02-02 16:05 | disposition home or self-care (01) ==
PROVIDERS: PCP Internal Medicine; Referring Provider Orthopaedic Surgery; Visit Provider Orthopaedic Surgery
PROC: (CPT 29827; principal; 2023-02-02 12:15)
DX: S46.012A Strain of muscle(s) and tendon(s) of the rotator cuff of left shoulder, initial encounter (principal); M75.22 Bicipital tendinitis, left shoulder; M19.012 Primary osteoarthritis, left shoulder; G89.18 Other acute postprocedural pain; S46.212A Strain of muscle, fascia and tendon of other parts of biceps, left arm, initial encounter; M25.712 Osteophyte, left shoulder; M25.812 Other specified joint disorders, left shoulder; W19.XXXA Unspecified fall, initial encounter
CPT/HCPCS: 29827; 29826; 29824; 64450; 93005; J0171; J0690; J1100; J2250; J2405; J2704; J3010

== ENCOUNTER → 2024-02-04 12:58 | Outpatient (CLI) | payer MEDICARE, SELFPAY ==
[2022-08-25 12:54] VITALS: BMI 32.8
--- NOTE | 2024-02-04 13:01 | DI.MRI.S_ITS ---
PROCEDURE: MR LOWER LEG RT WO CON INDICATIONS: RIGHT CALF PAIN TECHNIQUE: Noncontrast coronal and sagittal T1 spin echo and STIR; axial T1 spin echo and T2 fast spin echo with fat saturation through the right leg. COMPARISON: [facility] [place], CR, XR KNEE 4+ VIEWS LEFT, 01/03/2024, 16:45. FINDINGS: Image quality: Excellent. Bones: No acute fracture. Normal signal is normal for age. Please see below. Soft tissues: Moderate sized, partially ruptured popliteal cyst, continue multiple bodies, with the largest measuring 1.0 cm. Diffuse subcutaneous edema of the right leg with small amount of fluid tracking along the superficial muscular fascia of the posterior compartment. There is mild muscle edema at the myotendinous junction of the tibialis posterior, likely representing mild muscle strain (series 7, image 22). There is associated mild periosteal edema of the anterior aspect of the proximal fibula, likely representing mild stress changes. No associated periosteal thickening. IMPRESSION: 1. Moderate sized, partially rupture popliteal cyst with multiple bodies. 2. Diffuse subcutaneous edema of the right leg with small amount of fluid tracking along the superficial fascia of the posterior compartment, nonspecific. 3. Findings suggestive of mild muscle strain at the myotendinous junction of the proximal tibialis posterior, with associated stress changes of the proximal fibula. Dictated by: Rhea Ibrahim M.D. on 02/06/2024 at 9:21 Approved by: Rhea Ibrahim M.D. on 02/06/2024 at 9:32
== END ==
PROVIDERS: PCP Internal Medicine; Referring Provider Physician Assistant; Visit Provider Physician Assistant
DX: M66.0 Rupture of popliteal cyst (principal); M79.661 Pain in right lower leg
CPT/HCPCS: 73718